=== PATIENT | male | born 1970 | race Caucasian/White ===

== ENCOUNTER → 2017-05-03 | Outpatient (CLI) | payer OTHER | LOC: BMCIMAGING 09:17 | PROVIDERS: ATTEND Family Medicine | DX: S52.032A Displaced fracture of olecranon process with intraarticular extension of left ulna, initial encounter for closed fracture (principal) ==

== ENCOUNTER → 2017-05-03 | Outpatient (CLI) | payer OTHER | LOC: FIMAGING 13:36 | PROVIDERS: ATTEND Orthopaedic Surgery Hand Surgery | DX: S52.032A Displaced fracture of olecranon process with intraarticular extension of left ulna, initial encounter for closed fracture (principal) ==

== ENCOUNTER → 2017-05-22 | Outpatient (CLI) | payer OTHER | LOC: BMCIMAGING 07:46 | PROVIDERS: ATTEND Orthopaedic Surgery Hand Surgery | DX: S52.002A Unspecified fracture of upper end of left ulna, initial encounter for closed fracture (principal) ==

== ENCOUNTER → 2017-07-17 | Outpatient (CLI) | payer OTHER | LOC: BMCIMAGING 08:44 | PROVIDERS: ATTEND Orthopaedic Surgery Hand Surgery | DX: S52.032D Displaced fracture of olecranon process with intraarticular extension of left ulna, subsequent encounter for closed fracture with routine healing (principal) ==

== ENCOUNTER → 2017-10-28 | Outpatient (CLI) | payer OTHER | LOC: FCPNEURO 21:00 | PROVIDERS: ATTEND Psychiatry & Neurology Sleep Medicine | DX: G47.33 Obstructive sleep apnea (adult) (pediatric) (principal) ==

== ENCOUNTER → 2018-04-01 | Outpatient (CLI) | payer OTHER | LOC: BMCIMAGING 14:14 | PROVIDERS: ATTEND Orthopaedic Surgery Hand Surgery | DX: S52.032D Displaced fracture of olecranon process with intraarticular extension of left ulna, subsequent encounter for closed fracture with routine healing (principal) ==

== ENCOUNTER → 2018-04-08 | Outpatient (CLI) | payer OTHER | LOC: FCPNEURO 23:16 | PROVIDERS: ATTEND Psychiatry & Neurology Sleep Medicine | DX: G47.39 Other sleep apnea (principal) ==